=== PATIENT | male | born 1955 | race Caucasian/White ===

== ENCOUNTER → 2018-11-28 | Emergency (ER) | payer OTHER ==
[~2018-11-28] VITALS: Ht 172.7 cm; Wt 97.5 kg
[~2018-11-28] MED LIST: ASPIR 8181 MG PO; CENTRUM MEN'S1 EACH PO; CRESTOR40 MG PO; ISOSORBIDE MONO60 M1 PO; JARDIANCE25 MG PO; KEFLEX500 M1 PO; LEXAPRO 10 MG T10 M1 PO; LOPRESSOR50 PO; METFORMIN HCL500 MG PO; PLAVIX 75 MG TA75 M1 PO; PRANDIN2 MG PO; PROTONIX40 M1 PO; TRAMADOL 50 MG50 MG PO; TRULICITY1.5 MG/0.5; XANAX1 MG PO; ZETIA10 MG PO
[2018-11-28 19:32] VITALS: BP 101/54
== END ==
LOC: M.ERS 19:20
DX: S50.11XA Contusion of right forearm, initial encounter (principal); M54.5 Low back pain; I25.2 Old myocardial infarction; I10 Essential (primary) hypertension; E11.9 Type 2 diabetes mellitus without complications; Z95.1 Presence of aortocoronary bypass graft; Z88.0 Allergy status to penicillin; Z91.018 Allergy to other foods; W07.XXXA Fall from chair, initial encounter; Y92.89 Other specified places as the place of occurrence of the external cause; Y93.89 Activity, other specified; Y99.8 Other external cause status